=== PATIENT | male | born 1945 | race Caucasian/White ===

== ENCOUNTER 2017-06-07 03:18 | Emergency (ER) | payer MEDICARE ==
[~2017-06-07] VITALS: Ht 177.8 cm; Wt 84.0 kg
[2017-06-07 03:19] VITALS: BP 121/61; PULSE 93; RESP 16; TEMP 98.9; O2SAT 96
[2017-06-07] MEDS ORDERED: SIMV20TA PO (03:40)
[2017-06-07] MEDS ORDERED: DEXA4TAB PO (03:40)
[2017-06-07] MEDS ORDERED: LISI10TA3 PO (03:40)
[2017-06-07] MEDS ORDERED: [UNRECOGNIZED DRUG - CODE] PO (03:40)
[2017-06-07] MEDS ORDERED: LENA2.5C PO (03:40)
[2017-06-07] MEDS ORDERED: ACYC800T PO (03:40)
[2017-06-07] MEDS ORDERED: ASPI-516 CHEW (03:40)
[2017-06-07] MEDS ORDERED: LEVOFLOXACIN 750 MG TAB PO ONE (04:45)
[2017-06-07] MEDS ORDERED: RESP: IPRATROPIUM 0.5 MG/2.5 ML NEB NEB ONE (04:45)
--- NOTE | 2017-06-07 04:46 | PD ---
HPI Chief Complaint: Cold / Flu Symptoms Time Seen by Provider: 03:31 Travel History International Travel<30 days: No Contact w/Intl Traveler<30days: No Traveled to known affect area: No History of Present Illness HPI Patient is a 72-year-old male recently diagnosed with multiple myeloma he is receiving chemotherapy from Dr. Rick .For the last 2 days he's had shaking chills mild cough and a fever of 101.6 at home. Patient called the covering oncologist who told him to come to the ER. In the ER patient is afebrile . Pt took Tylenol with oxycodone before coming for the aches and fever and his multiple myeloma pain. He had fever symptom reduction from meds at home. X-ray ordered cultures for flu and strep throat are sent as well it's been 2 day course of feeling this achy shaking chills.He got under an electric blanket to make himself feel better he took the pain medication that has Tylenol which helped with the fever as well as his pain. He has back pain from the multiple myeloma. chills are diffuse generalized and pain is localized to his back. Did not see an MD for this fever cough event. PFSH Past Medical History Cancer: Yes (MM) Tetanus Vaccination: Never Vaccinated Influenza Vaccination: Yes Past Surgical History Abdominal Surgery: Yes (colon resect 2007) Social History Alcohol Use: No Tobacco Use: No Substance Use: No Allergies-Medications (Allergen,Severity, Reaction): Coded Allergies: No Known Drug Allergies (Verified Allergy, Severe, 06/07/17) Reported Meds & Prescriptions Reported Meds & Active Scripts Active Atrovent HFA 12.9 GM Inh (Ipratropium [place]) 17 Mcg/Actuation Aer 2 Puff INH Q6HR PRN Levaquin (Levofloxacin) 750 Mg Tablet 750 Mg PO DAILY Reported [oxycodone-apap] 10-325 Mg PO Q6HR Aspirin 81 Mg Chew 81 Mg CHEW DAILY Simvastatin 20 Mg Tab 20 Mg PO DAILY Lisinopril 10 Mg Tab 10 Mg PO DAILY Acyclovir 800 Mg Tab 800 Mg PO DAILY Dexamethasone 4 Mg Tab 20 Mg PO DIRECTED Revlimid (Lenalidomide) 2.5 Mg Capsule 25 Mg PO Review of Systems General / Constitutional: Positive: Fever, Chills Respiratory: Positive: Cough Musculoskeletal: Positive: Pain (back pain chronic of MM) Physical Exam Narrative GENERAL: Awake alert oriented 3 no signs of toxicity no signs of sepsis SKIN: Warm and dry. HEAD: Atraumatic. Normocephalic. EYES: Pupils equal and round. No scleral icterus. No injection or drainage. ENT: No nasal bleeding or discharge. Mucous membranes pink and moist. NECK: Trachea midline. No JVD. CARDIOVASCULAR: Regular rate and rhythm. RESPIRATORY: No accessory muscle use patient has crackles in the right base that correlate with the chest x-ray where I see an infiltrate inRLL GASTROINTESTINAL: Abdomen soft, non-tender, nondistended. Hepatic and splenic margins not palpable. MUSCULOSKELETAL: Extremities without clubbing, cyanosis, or edema. No obvious deformities. NEUROLOGICAL: Awake and alert. No obvious cranial nerve deficits. Motor grossly within normal limits. Five out of 5 muscle strength in the arms and legs. Normal speech. PSYCHIATRIC: Appropriate mood and affect; insight and judgment normal. Data Data Last Documented VS Vital Signs Date Time Temp Pulse Resp B/P (MAP) Pulse Ox O2 Delivery O2 Flow Rate FiO2 06/07/17 04:55 06/07/17 03:19 98.9 93 16 96 Room Air Orders Orders Influenzae A/B Antigen (06/07/17 03:31) Group A Rapid Strep Screen (06/07/17 03:31) Chest, Pa & Lat (06/07/17 ) Strep Culture (Group A) (06/07/17 03:52) Levofloxacin (Levaquin) (06/07/17 04:45) Ipratropium Neb (Atrovent Neb) (06/07/17 04:45) MDM Medical Decision Making Medical Screen Exam Complete: Yes Emergency Medical Condition: Yes Differential Diagnosis PNA vs viral illness vs Sx flare of MM Narrative Course X-ray interpreted by me shows a lower right lobe infiltrate lateral view as well. He is afebrile he is able to tolerate by mouth I'm giving him 750 of Levaquin by mouth giving him an Atrovent neb and discharging the follow up Friday morning with Dr. Neil Everett Diagnosis Primary Impression: Pneumonia Qualified Codes: J18.1 - Lobar pneumonia, unspecified organism Patient Instructions: Bacterial Pneumonia (ED), General Instructions Scripts Ipratropium HFA 12.9 GM Inh (Atrovent HFA 12.9 GM Inh) 17 Mcg/Actuation Aer 2 PUFF INH Q6HR Y for SHORTNESS OF BREATH, #1 INHALER 0 Refills Prov: Huy Cervantes MD 06/07/17 Levofloxacin (Levaquin) 750 Mg Tablet 750 MG PO DAILY for Infection, #5 TAB 0 Refills Prov: Huy Cervantes MD 06/07/17 Disposition: 01 DISCHARGE HOME Condition: Good Huy Cervantes MD Jun 07, 2017 04:46
[2017-06-07] MEDS ORDERED: LEVA750T9 PO (04:49)
[2017-06-07] MEDS ORDERED: IPRA17I INH (04:49)
--- NOTE | 2017-06-07 05:53 | RADRPT ---
EXAM DATE/TIME: 06/07/2017 03:42 [facility] COMPARISON: No previous studies available for comparison. INDICATIONS : Cough. MEDICAL HISTORY : Hypertension. Hypercholesterolemia. Multiple myeloma. SURGICAL HISTORY : Infusaport ENCOUNTER: Initial ACUITY: 1 day PAIN SCORE: 0/10 LOCATION: Bilateral chest FINDINGS: PA and lateral views of the chest demonstrate the lungs to be symmetrically aerated without evidence of mass, infiltrate or effusion. On both the frontal and lateral view, there is a small metallic den sity which projects in the anterior medial lower right lung. This measures 2 mm on the frontal view. The cardiomediastinal contours are unremarkable. Mild degenerative changes throughout the thoracic spine and minimal curvature of the lower thoracic spine convex towards the right. [id number] cat heter tip projects over the mid superior vena cava.. CONCLUSION: No acute cardiopulmonary disease. 2 mm metallic density projects within the medial anterior right lo wer lung. Michael Stewart MD on June 07, 2017 at 5:50 Board Certified Radiologist. This report was verified electronically.
[2017-06-14] MEDS ORDERED: PERC10TA27 PO (11:15)
== END 2017-06-07 05:05 | disposition home or self-care (01) ==
LOC: EDSEX 03:18 → NEPC 03:18
DX: J18.1 Lobar pneumonia, unspecified organism (principal); C90.00 Multiple myeloma not having achieved remission; R05 Cough
CPT/HCPCS: 71020; 87081; 87804; 87880; 94664; 99284; J7644